=== PATIENT | male | born 1950 | race Caucasian/White ===

== ENCOUNTER → 2021-09-19 | Outpatient (CLI) | payer BC ==
[2021-09-19 09:32] LABS: CREATININE 0.81 mg/dL (0.70-1.30)
== END | disposition home or self-care (01) ==
LOC: LAB 08:40 → CT 09:00
PROVIDERS: ATTEND Family Medicine
DX: J43.9 Emphysema, unspecified (principal); R91.8 Other nonspecific abnormal finding of lung field